=== PATIENT | female | born 1970 | race Caucasian/White ===

== ENCOUNTER 2022-01-13 05:55 | Day surgery (SDC) | payer BC ==
[2022-01-13] MEDS ORDERED: Lactated Ringers 1,000 ML IV ONE (06:06)
[2022-01-13] MEDS ORDERED: Lactated Ringers 1,000 ML IV SCH (06:30)
[2022-01-13] MEDS ORDERED: DIPRIVAN 200 MG/20 ML IV ONE (08:05)
[2022-01-13] MEDS ORDERED: Versed 2 MG/2 ML Injection ONE (08:05)
[2022-01-13 09:08] VITALS: O2SAT 100
[2022-01-13 09:26] VITALS: BP 114/67; PULSE 81
--- NOTE | 2022-01-13 11:32 | OP ---
SURGERY DATE/TIME: 01/13/2022 0813 PREOPERATIVE DIAGNOSES: 1) Colon cancer screening. 2) Family history of colorectal cancer. POSTOPERATIVE DIAGNOSIS: Normal colon. PROCEDURE: Screening colonoscopy. SURGEON: Og Sandy M.D. ANESTHESIA: MAC by Antoine Patton CRNA. ESTIMATED BLOOD LOSS: None. SPECIMENS: None. DESCRIPTION OF PROCEDURE: After informed written consent was obtained, the patient was taken to the endoscopy suite. She was placed in left lateral decubitus position and anesthesia was titrated to desired level of consciousness. Digital rectal exam showed normal sphincter tone and no internal lesions. The scope was inserted into the rectum and sequentially the entire colonic mucosa was traversed. The level of cecum was reached and verified with direct visualization of the ileocecal valve. Upon withdrawal careful mucosal inspection revealed no mucosal abnormalities. Prior to withdrawal retroflexion showed no internal lesions. The scope was removed and the patient was transferred to the recovery room in good condition.
== END 2022-01-13 09:20 | disposition home or self-care (01) ==
LOC: SDC 05:55
PROVIDERS: ATTEND Family Medicine
DX: Z12.11 Encounter for screening for malignant neoplasm of colon (principal); Z80.0 Family history of malignant neoplasm of digestive organs
CPT/HCPCS: J2250; J2704